=== PATIENT | female | born 1955 | race Caucasian/White ===

== ENCOUNTER → 2022-02-14 02:09 | Outpatient (CLI) | payer MEDICARE, SELFPAY ==
--- NOTE | 2022-02-14 | DI.CTLCSR_ITS ---
Exam(s) CT CHEST LUNG CANCER SCREEN EXAM: CT CHEST LUNG CANCER SCREEN CLINICAL HISTORY: CURRENT SMOKER, F17.210, LUNG CA SCREENING TECHNIQUE: Imaging Protocol: Axial computed tomography images with coronal and sagittal reformatted images were created and reviewed COMPARISON: No exams were available for comparison FINDINGS: Tracheobronchial tree: Patent where visualized. Mediastinum and Kathleen: No dominant adenopathy or fluid collection. Pulmonary parenchyma: No consolidation or dominant measurable mass. No significant emphysematous or f ibrotic changes. Lung Nodules: Smoothly marginated 6 millimeter nodule in the lingula. No additional nodules.. Pleura: No effusion or pneumothorax. Heart: The heart is not dilated. No coronary artery calcifications are seen. Aorta: Thoracic aorta non-dilated. Upper abdomen: Unremarkable. Bones: Schmorl's node superior endplate T7 . bone island L1. Soft Tissues: Unremarkable. IMPRESSION: 6 millimeter nodule in the lingula. Lung RADS Cat 3 - Probably Benign: Probably benign finding(s) - short term follow-up suggested; inclu de nodules with a low likelihood of becoming a clinically active cancer. Lung-RADS 1.0 CATEGORIES: Category 0 - Prior chest CT exam(s) being located for comparison. Category 1 - Annual screening in 12 months. No nodules or definitely benign nodules. Category 2 - Annual screening in 12 months. Benign appearance. Nodules with low likelihood of becomin g active cancer. Category 3 - 6-month follow-up. Probably benign. Short-term follow-up suggested. Nodules with low lik elihood of becoming active cancer. Category 4A - 3-month follow-up and CT/PET if >8 mm in size. Suspicious finding. Findings which requi re additional testing. Category 4B - Findings which require additional testing and tissue sampling. Category 4X - Category 3 or 4 nodules with additional features or imaging findings that increases the suspicion of malignancy. Modifier S- Potentially clinically significant findings (non lung cancer) RADIATION DOSE DELIVERED: 71.79mGy.cm Total DLP 1.84mGy CTDIvol DATA REPOSITORY: All CT scans at this facility are submitted to the National Radiology Data Registry (NRDR) Dose Index Registry (DIR) with the [employer] ([employer]). RADIATION OPTIMIZATION: All CT scans at this facility use at least one of these dose optimization te chniques: automated exposure control; mA and/or kV adjustment per patient size (includes targeted exa ms where dose is matched to clinical indication); or iterative reconstruction.
== END ==
PROVIDERS: PCP Nurse Practitioner; Visit Provider Nurse Practitioner
DX: F17.210 Nicotine dependence, cigarettes, uncomplicated (principal); Z12.2 Encounter for screening for malignant neoplasm of respiratory organs; R91.1 Solitary pulmonary nodule
CPT/HCPCS: 71271

== ENCOUNTER 2022-10-10 01:57 | Outpatient (CLI) | payer MEDICARE, SELFPAY ==
--- NOTE | 2022-10-10 13:00 | DI.CT_ITS ---
Exam(s) CT CHEST WO EXAM: CT CHEST WO CLINICAL HISTORY: SMOKER F17.210 LUNG NODULE R91.1 6 MO FU. TECHNIQUE: Imaging protocol: Axial computed tomography images were obtained and coronal and sagittal reformatted images were created and reviewed. COMPARISON: CT CT CHEST LUNG CANCER SCREEN from 02/14/2022 FINDINGS: Tracheobronchial tree: Patent where visualized. Pulmonary parenchyma: No consolidation or dominant measurable mass. No architectural distortion. Ther e is a stable 6 mm nodule in the lingula. There is a calcified granuloma in the left upper lobe. Th ere is a 2 mm nodule in the left upper lobe. Mediastinum and Kathleen: No dominant adenopathy or fluid collection. The esophagus is unremarkable. Thyroid gland: There is a 4 mm hypodense nodule in the right thyroid gland. No follow-up is recommen ded. Pleura: No effusion or pneumothorax. Heart: The heart is not dilated. No coronary artery calcifications are seen. No pericardial effusion. Aorta: Thoracic aorta non-dilated. Atherosclerosis is present. Upper abdomen: Unremarkable. Lymph nodes: Within normal limits. Soft tissues: Unremarkable. Bones:Within normal limits for the patient's age. IMPRESSION: Stable 6 mm pulmonary nodule in the lingula. 2 mm left upper lobe pulmonary nodule. A [address] s can of the chest is recommended for further evaluation (Graeme et al, 2017). RADIATION DOSE DELIVERED: 491mGy.cm Total DLP 491mGy.cm Total DLP DATA REPOSITORY: All CT scans at this facility are submitted to the National Radiology Data Registry (NRDR) Dose Index Registry (DIR) with the [employer] ([employer]). RADIATION OPTIMIZATION: All CT scans at this facility use at least one of these dose optimization te chniques: automated exposure control; mA and/or kV adjustment per patient size (includes targeted exa ms where dose is matched to clinical indication); or iterative reconstruction.
== END 2022-10-10 02:17 ==
LOC: DI 01:57
PROVIDERS: PCP Nurse Practitioner; Visit Provider Nurse Practitioner
DX: R91.1 Solitary pulmonary nodule (principal); F17.210 Nicotine dependence, cigarettes, uncomplicated; J84.10 Pulmonary fibrosis, unspecified; R91.8 Other nonspecific abnormal finding of lung field
CPT/HCPCS: 71250

== ENCOUNTER → 2023-11-16 02:53 | Outpatient (CLI) | payer MEDICARE, SELFPAY ==
--- NOTE | 2023-11-16 | DI.CTLCSR_ITS ---
Exam(s) CT CHEST LUNG CANCER SCREEN EXAM: CT CHEST LUNG CANCER SCREEN CLINICAL HISTORY: SCREENING FOR LUNG CA, CURRENT SMOKER, F17.210. TECHNIQUE: Imaging Protocol: Low Dose Technique CONTRAST MATERIAL: None COMPARISON: CT CT CHEST WO from 10/10/2022 FINDINGS: CHEST: LUNGS: There are no significant right lung findings. In the opposite-left lung the previously descri bed nodules remain unchanged. The largest of these is again noted to be in the superior lingular seg ment, measuring 6 mm, similar to previous. There are no new additional nodules evident.. There are no confluent infiltrates. No pleural effusions. MEDIASTINUM: There is no obvious hilar nor mediastinal adenopathy. CARDIAC: Heart size is normal. There is no pericardial effusion.Caliber of the thoracic aorta is wit hin normal limits. OTHER: OSSEOUS: No significant osseous lesions.No fractures.. IMPRESSION: 1. Stable appearance of previously described small left lung nodules ranging up to 6 mm size. No new nodules, infiltrates, nor pleural effusions. 2. No significant intrathoracic adenopathy. 3. Lung RADS Cat 2 - Benign Appearance / Behavior: Nodules with a very low likelihood of becoming a c linically active cancer due to size or lack of growth Lung-RADS 1.0 CATEGORIES: Category 0 - Prior chest CT exam(s) being located for comparison. Category 1 - Annual screening in 12 months. No nodules or definitely benign nodules. Category 2 - Annual screening in 12 months. Benign appearance. Nodules with low likelihood of becomin g active cancer. Category 3 - 6-month follow-up. Probably benign. Short-term follow-up suggested. Nodules with low lik elihood of becoming active cancer. Category 4A - 3-month follow-up and CT/PET if >8 mm in size. Suspicious finding. Findings which requi re additional testing. Category 4B - Findings which require additional testing and tissue sampling. Category 4X - Category 3 or 4 nodules with additional features or imaging findings that increases the suspicion of malignancy. Modifier S- Potentially clinically significant findings (non lung cancer) RADIATION DOSE DELIVERED: Total DLP DATA REPOSITORY: All CT scans at this facility are submitted to the National Radiology Data Registry (NRDR) Dose Index Registry (DIR) with the [employer] ([employer]). RADIATION OPTIMIZATION: All CT scans at this facility use at least one of these dose optimization te chniques: automated exposure control; mA and/or kV adjustment per patient size (includes targeted exa ms where dose is matched to clinical indication); or iterative reconstruction.
== END ==
PROVIDERS: PCP Nurse Practitioner; Visit Provider Nurse Practitioner
DX: F17.210 Nicotine dependence, cigarettes, uncomplicated (principal); Z12.2 Encounter for screening for malignant neoplasm of respiratory organs; R91.1 Solitary pulmonary nodule
CPT/HCPCS: 71271